=== PATIENT | male | born 1995 | race Caucasian/White ===

== ENCOUNTER 2021-03-04 23:51 | Emergency (ER) | payer BC ==
[2021-03-05 00:02] VITALS: BP 145/88; PULSE 80; RESP 20; TEMP 97.8
--- NOTE | 2021-03-05 00:53 | US ---
EXAMINATION TYPE: US scrotum with doppler. Grayscale and color Doppler Duplex imaging performed of aron craig scrotum. DATE OF EXAM: 03/05/2021 COMPARISON: NONE CLINICAL HISTORY: right testicular pain. No injury, pain 2 hours EXAM MEASUREMENTS: TESTICLES: Right Testicle: 2.9 x 2.0 x 2.2 cm Left Testicle: 3.4 x 1.8 x 2.6 cm EPIDIDYMIS HEAD: Right Epididymis: 1.1 cm Left Epididymis: 1.2 cm Doppler performed to assess for testicular vascularity; good bilateral color flow and waveforms are s een. There is no evidence of testicular torsion. Presence of hydroceles: No Presence of varicoceles: No Right epididymis is prominent and slightly hypervascular, possible epididymitis. Bilateral microlithi asis visualized. 0.3 cm left epididymal cyst visualized IMPRESSION: There is slight increased vascularity of the right epididymis compared to the left. This could relate to epididymitis. No testicular torsion or mass.
[2021-03-05 01:02] LABS: Appearance,Urine Clear (Clear); Bilirubin,Urine Negative (Negative); Blood,Urine Negative (Negative); Color,Urine Light Yellow; Glucose,Urine (UA) Negative (Negative); Ketones,Urine Negative (Negative); Leukocyte Esterase,Urine Negative (Negative); Nitrite,Urine Negative (Negative); PH, Urine 5.5 (5.0-8.0); Protein,Urine Negative (Negative); Specific Gravity,Urine 1.015 (1.001-1.035); Urobilinogen,Urine <2.0 mg/dL (<2.0)
[2021-03-05] MEDS ORDERED: cefTRIAXone 250 MG VIAL IM STA (01:07)
--- NOTE | 2021-03-05 01:08 | ED ---
Male Urogenital HPI - General Chief complaint: Urogenital Stated complaint: Testicular Pain Time Seen by Provider: 03/05/21 00:04 Source: patient Mode of arrival: ambulatory Limitations: no limitations - Related Data Previous Rx's Medication Instructions Recorded Doxycycline Monohydrate [Monodox] 100 mg PO Q12HR #20 cap 03/05/21 Allergies Allergy/AdvReac Type Severity Reaction Status Date / Time Penicillins Allergy Rash/Hives Verified 03/05/21 00:02 Review of Systems ROS Statement: Those systems with pertinent positive or pertinent negative responses have been documented in the HPI. ROS Other: All systems not noted in ROS Statement are negative. Past Medical History Past Medical History: No Reported History History of Any Multi-Drug Resistant Organisms: None Reported Past Surgical History: No Surgical Hx Reported Past Psychological History: No Psychological Hx Reported Smoking Status: Never smoker Past Alcohol Use History: None Reported Past Drug Use History: None Reported General Exam Limitations: no limitations Course Vital Signs 03/05/21 00:00 Temperature 97.8 F Pulse Rate 80 Respiratory 20 Rate Blood Pressure 145/88 O2 Sat by Pulse 98 Oximetry Medical Decision Making - Lab Data Lab Results 03/05/21 Range/Units 00:53 Urine Color Light Yellow Urine Appearance Clear (Clear) Urine pH 5.5 (5.0-8.0) Ur Specific [place] 1.015 (1.001-1.035) Urine Protein Negative (Negative) Urine Glucose (UA) Negative (Negative) Urine Ketones Negative (Negative) Urine Blood Negative (Negative) Urine Nitrite Negative (Negative) Urine Bilirubin Negative (Negative) Urine Urobilinogen <2.0 (<2.0) mg/dL Ur Leukocyte Esterase Negative (Negative) Disposition Clinical Impression: Epididymitis Disposition: HOME SELF-CARE Condition: Stable Instructions (If sedation given, give patient instructions): Epididymitis (ED), Testicle Pain (ED) Additional Instructions: Take prescribed medication as directed. Follow-up with urologist if symptoms not improved. Return to emergency department if symptoms worsen. Prescriptions: Doxycycline Monohydrate [Monodox] 100 mg PO Q12HR #20 cap Is patient prescribed a controlled substance at d/c from ED?: No Referrals: None,Stated [Primary Care Provider] - 1-2 days Nitin Cohen MD [STAFF PHYSICIAN] - 1-2 days Time of Disposition: 01:08
== END 2021-03-05 01:31 | disposition home or self-care (01) ==
LOC: EC 23:51
DX: N45.1 Epididymitis (principal); Z88.0 Allergy status to penicillin
CPT/HCPCS: 76870; 81003; 93975; 96372; 99284